=== PATIENT | male | born 1965 | race Caucasian/White ===

== ENCOUNTER → 2016-11-19 | Outpatient (CLI) | payer OTHER ==
--- NOTE | 2016-11-19 17:42 | Diagnostic Imaging Report ---
INDICATION: Pain. Four views of the left shoulder were obtained. FINDINGS: The alignment is normal. There is no fracture or dislocation. The left lung is clear. Soft tissues are unremarkable. IMPRESSION: No focal abnormality in the left shoulder. Dictated by: Dictated on workstation # [id number]
== END ==
LOC: RAD 16:17
PROVIDERS: ATTEND Nurse Practitioner Family
DX: M25.512 Pain in left shoulder (principal)
CPT/HCPCS: 73030